=== PATIENT | female | born 1940 | race Caucasian/White ===

== ENCOUNTER → 2016-12-25 | Outpatient (CLI) | payer MEDICARE, OTHER ==
[~2016-12-25] MED LIST: ASPI-611 PO; CALC-586 PO; LEVO75TA57 PO; MULT1CAP47 PO; PROP60TA PO; ZOLP-109 PO
== END ==
LOC: WC.BC 12:23
DX: Z12.31 Encounter for screening mammogram for malignant neoplasm of breast (principal)
CPT/HCPCS: 77063; G0202